=== PATIENT | female | born 1940 | race Caucasian/White ===

== ENCOUNTER 2017-08-24 06:28 | Day surgery (SDC) | payer MEDICARE, BC ==
[~2017-08-24 06:28] MED LIST: Lactated Ringers 1,000 ML IV SCH
[2017-08-24] MEDS ORDERED: Propofol 200 MG/20 ML SDV ONE ×2 (07:59→08:26)
[2017-08-24] MEDS ORDERED: fentaNYL 100 MCG/2 ML SDV ONE (07:59)
--- NOTE | 2017-08-24 17:53 | OR ---
DATE OF SURGERY: 08/24/2017. REFERRING PROVIDER: Iona Cyr MD. PREOPERATIVE DIAGNOSES: History of rectal polyp. Last colonoscopy 03/2012. POSTOPERATIVE DIAGNOSES: 1. A 3 mm rectal polyp at 10 cm removed with hot snare. 2. Moderate diverticulosis, mainly left-sided. 3. Moderate hemorrhoids, mainly external, not acutely inflamed. PROCEDURE: Colonoscopy with polypectomy x1 using hot snare. SURGEON: Anton Bullock M.D. ANESTHESIA: Monitored anesthesia care. BOWEL PREP: GoodChon Toney is a 76-year-old female was brought to the endoscopy suite after discussing risks and benefits of the procedure. Informed consent was obtained for conscious sedation and colonoscopy with or without biopsy and/or polypectomy. We also discussed possibility of missed lesions. Pre-procedure exam was unremarkable. IV, oxygen, and monitors were placed. The patient was placed in the left lateral decubitus position. Sedation was administered and a digital rectal exam was performed and did reveal some moderate external hemorrhoids, not acutely inflamed. Colonoscope was passed into the rectum and slowly advanced all the way to the cecum. Cecum was viewed and photographed. The colonoscope was slowly withdrawn and the mucosa was closed observed in a direct circumferential manner. The ascending colon was unremarkable. The transverse colon was unremarkable. The descending colon was remarkable for moderate diverticulosis. The sigmoid colon was remarkable for moderate diverticulosis. The proximal rectal mucosa did reveal 3 mm polyp at 10 cm removed with hot snare. Retroflexion was performed and rectal mucosa was remarkable for some internal hemorrhoids which were moderate and not acutely inflamed. Scope was removed. The patient tolerated the procedure well. The patient was monitored until that baseline status. Discharge instructions were reviewed and the patient was discharged in good condition. COMPLICATIONS: None. TOTAL TIME: 24 minutes. ESTIMATED BLOOD LOSS: None. RECOMMENDATIONS/FOLLOWUP: We will await results of path report to determine ideal followup interval. I will have the patient hold her aspirin for 3 days to limit any chance of bleeding. I would like to kindly thank Dr. Cyr for this referral. DMB: 08/24/2017 10:11:39 MODL: 08/24/2017 17:45:46 /[id number]
== END 2017-08-24 10:31 | disposition home or self-care (01) ==
LOC: VM.SDS 06:28
PROVIDERS: ATTEND Family Medicine
DX: Z12.11 Encounter for screening for malignant neoplasm of colon (principal); K62.1 Rectal polyp; K57.30 Diverticulosis of large intestine without perforation or abscess without bleeding; K64.4 Residual hemorrhoidal skin tags; K64.8 Other hemorrhoids; E11.22 Type 2 diabetes mellitus with diabetic chronic kidney disease; I12.9 Hypertensive chronic kidney disease with stage 1 through stage 4 chronic kidney disease, or unspecified chronic kidney disease; N18.3 Chronic kidney disease, stage 3 (moderate); E78.00 Pure hypercholesterolemia, unspecified; E83.42 Hypomagnesemia; Z86.010 Personal history of colon polyps; Z88.0 Allergy status to penicillin; Z88.1 Allergy status to other antibiotic agents; Z88.2 Allergy status to sulfonamides; Z88.8 Allergy status to other drugs, medicaments and biological substances; Z79.84 Long term (current) use of oral hypoglycemic drugs; Z79.82 Long term (current) use of aspirin; Z90.49 Acquired absence of other specified parts of digestive tract; Z98.51 Tubal ligation status; Z90.710 Acquired absence of both cervix and uterus
CPT/HCPCS: 00812; 82962; J2704; J3010; J7120

== ENCOUNTER 2022-06-02 08:22 | Day surgery (SDC) | payer MEDICARE, BC ==
[2022-06-02] MEDS ORDERED: Propofol 200 MG/20 ML SDV ONE ×2 (09:43→10:57)
[2022-06-02] MEDS ORDERED: fentaNYL 100 MCG/2 ML SDV ONE (09:43)
== END 2022-06-02 13:55 | disposition home or self-care (01) ==
LOC: VM.SDS 08:22
PROVIDERS: ATTEND Family Medicine
DX: Z12.11 Encounter for screening for malignant neoplasm of colon (principal); K29.50 Unspecified chronic gastritis without bleeding; K29.80 Duodenitis without bleeding; K57.30 Diverticulosis of large intestine without perforation or abscess without bleeding; K64.8 Other hemorrhoids; K25.9 Gastric ulcer, unspecified as acute or chronic, without hemorrhage or perforation; D50.9 Iron deficiency anemia, unspecified; E11.9 Type 2 diabetes mellitus without complications; I10 Essential (primary) hypertension; E78.00 Pure hypercholesterolemia, unspecified; E83.42 Hypomagnesemia; E66.9 Obesity, unspecified; M10.9 Gout, unspecified; Z86.010 Personal history of colon polyps; Z88.0 Allergy status to penicillin; Z88.2 Allergy status to sulfonamides; Z88.8 Allergy status to other drugs, medicaments and biological substances; Z88.1 Allergy status to other antibiotic agents; Z79.899 Other long term (current) drug therapy; Z79.84 Long term (current) use of oral hypoglycemic drugs; Z90.49 Acquired absence of other specified parts of digestive tract; Z98.890 Other specified postprocedural states; Z68.35 Body mass index [BMI] 35.0-35.9, adult
CPT/HCPCS: 00813; 82947; 88305; 88342; J2704; J3010; J7120

== ENCOUNTER 2022-07-13 16:21 | Emergency (ER) | payer MEDICARE, BC ==
[2022-07-13 17:34] LABS: ANION GAP 23.8 mmol/L (5-15); CHLORIDE,CL 114 mmol/L (98-107); ESTIMATED GFR 5 mL/min (>=60); SODIUM,NA 143 mmol/L (136-145)
[2022-07-13] MEDS ORDERED: 50% Dextrose in Water 50 ML Syringe IVPUSH PRN (18:02)
[2022-07-13] MEDS ORDERED: Glucagon,Human Recombinant 1 MG Vial IM PRN (18:02)
[2022-07-13] MEDS ORDERED: 50% Dextrose in Water 50 ML Syringe IV PRN (18:02)
[2022-07-13 18:16] LABS: PCO2 ARTERIAL,POC 17 mmHg (35-48)
[2022-07-13] MEDS: Calcium Gluc in NaCl, ISO-OSM 1,000 MG in Premix Bag 1 BAG IV ONE ×2 (18:20)
[2022-07-13] MEDS: cefTRIAXone 2 GM Vial IVPUSH ONE (18:28)
[2022-07-13] MEDS: Insulin Regular, Human 100 Units/ML 3 ML Vial IVPUSH ONE (18:32)
[2022-07-13] MEDS: Sodium Bicarbonate 8.4% 50 MEQ/50 ML Syringe IVPUSH ONE (18:36)
[2022-07-13] MEDS: Dextrose 10% in Water 500 ML IV SCH (18:36)
[2022-07-13] MEDS: SODIUM CHLORIDE ONE (18:57)
[2022-07-13] MEDS: [UNRECOGNIZED DRUG - OTHER] ONE (18:57)
[2022-07-13] MEDS: CALCIUM GLUCONATE ONE (18:57)
== END 2022-07-13 19:05 | disposition short-term general hospital (02) ==
LOC: VM.ED 16:21
DX: E87.5 Hyperkalemia (principal); I12.9 Hypertensive chronic kidney disease with stage 1 through stage 4 chronic kidney disease, or unspecified chronic kidney disease; E11.22 Type 2 diabetes mellitus with diabetic chronic kidney disease; N18.9 Chronic kidney disease, unspecified; N17.9 Acute kidney failure, unspecified; E78.00 Pure hypercholesterolemia, unspecified; E66.9 Obesity, unspecified; Z68.30 Body mass index [BMI] 30.0-30.9, adult; Z88.0 Allergy status to penicillin; Z88.2 Allergy status to sulfonamides; Z88.1 Allergy status to other antibiotic agents; Z88.8 Allergy status to other drugs, medicaments and biological substances; Z79.82 Long term (current) use of aspirin; Z79.84 Long term (current) use of oral hypoglycemic drugs; Z79.899 Other long term (current) drug therapy
CPT/HCPCS: 36415; 36600; 70450; 80053; 81001; 82803; 82947; 83605; 83735; 84484; 85025; 86140; 87086; 93005; 93010; 96361; 96365; 96375; 99285; 99285-25; J0696; J1815-GY; J3490

== ENCOUNTER 2022-08-11 11:17 | Inpatient (IN) | payer BC, MEDICARE ==
[2022-08-12] MEDS ORDERED: Betamethasone Dipropionate/Clotrimazole 0.05-1% Crm 15 GM Tube TOP PRN (14:19)
[2022-08-12] MEDS ORDERED: Glucagon,Human Recombinant 1 MG Vial IM PRN ×2 (14:19→15:46)
[2022-08-12] MEDS ORDERED: 50% Dextrose in Water 50 ML Syringe IVPUSH PRN ×2 (14:19→15:46)
[2022-08-12] MEDS: Magnesium Chloride 64 MG Tab.ER PO SCH ×2 (16:34→20:40)
[2022-08-12] MEDS: Heparin Sodium 5,000 Units/ML Vial SUBCUT SCH (16:35)
[2022-08-12] MEDS: predniSONE 20 MG Tab PO SCH (16:35)
[2022-08-12] MEDS: Insulin Lispro 100 Units/ML 3 ML Vial SUBCUT SCH ×3 (17:34→20:47)
[2022-08-12] MEDS: Beta-Carotene (Vitamin A) w/Vitamin C & E plus Minerals Tab PO SCH (20:40)
[2022-08-12] MEDS: Citric Acid/Sodium Citrate Solution 30 ML Cup PO SCH (20:43)
[2022-08-12] MEDS: Sodium Chloride 0.9% 10 ML Syringe FLUSH PRN (20:54)
[2022-08-12] MEDS ORDERED: ATOVAQUONE 750 MG/5 ML PO SCH (21:00)
[2022-08-13] MEDS: Allopurinol 100 MG Tab PO SCH (08:27)
[2022-08-13] MEDS: Magnesium Chloride 64 MG Tab.ER PO SCH ×3 (08:27→20:28)
[2022-08-13] MEDS: Furosemide 40 MG Tab PO SCH (08:28)
[2022-08-13] MEDS: Beta-Carotene (Vitamin A) w/Vitamin C & E plus Minerals Tab PO SCH ×2 (08:28→20:30)
[2022-08-13] MEDS: Famotidine 20 MG Tab PO SCH (08:29)
[2022-08-13] MEDS: Cholecalciferol (Vitamin D3) 25 MCG Tab PO SCH (08:31)
[2022-08-13] MEDS: Folic Acid 1 MG Tab PO SCH (08:31)
[2022-08-13] MEDS: Ferrous Sulfate 325 MG Tab PO SCH (08:31)
[2022-08-13] MEDS: Loratadine 10 MG Tab PO SCH (08:31)
[2022-08-13] MEDS: predniSONE 20 MG Tab PO SCH (08:32)
[2022-08-13] MEDS: Heparin Sodium 5,000 Units/ML Vial SUBCUT SCH ×2 (08:32→20:27)
[2022-08-13] MEDS: Citric Acid/Sodium Citrate Solution 30 ML Cup PO SCH ×3 (08:33→20:29)
[2022-08-13] MEDS: Insulin Lispro 100 Units/ML 3 ML Vial SUBCUT SCH ×7 (08:33→20:34)
[2022-08-13] MEDS: Insulin Glarg,Human.Rec.Analog 100 Unit/ML SUBCUT SCH (08:52)
[2022-08-13] MEDS: amLODIPine 10 MG Tab PO SCH (08:52)
[2022-08-13] MEDS ORDERED: glipiZIDE 5 MG Tab PO SCH (09:00)
[2022-08-13 09:19] LABS: ANION GAP 12.8 mmol/L (5-15)
[2022-08-13] MEDS: Sodium Chloride 0.9% 10 ML Syringe FLUSH PRN (20:40)
[2022-08-14] MEDS: Ferrous Sulfate 325 MG Tab PO SCH (08:22)
[2022-08-14] MEDS: Cholecalciferol (Vitamin D3) 25 MCG Tab PO SCH (08:22)
[2022-08-14] MEDS: Beta-Carotene (Vitamin A) w/Vitamin C & E plus Minerals Tab PO SCH ×2 (08:22→20:35)
[2022-08-14] MEDS: Magnesium Chloride 64 MG Tab.ER PO SCH ×3 (08:22→20:35)
[2022-08-14] MEDS: amLODIPine 10 MG Tab PO SCH (08:23)
[2022-08-14] MEDS: Loratadine 10 MG Tab PO SCH (08:24)
[2022-08-14] MEDS: Furosemide 40 MG Tab PO SCH (08:24)
[2022-08-14] MEDS: Folic Acid 1 MG Tab PO SCH (08:24)
[2022-08-14] MEDS: Allopurinol 100 MG Tab PO SCH (08:24)
[2022-08-14] MEDS: predniSONE 20 MG Tab PO SCH (08:25)
[2022-08-14] MEDS: Famotidine 20 MG Tab PO SCH (08:25)
[2022-08-14] MEDS: Citric Acid/Sodium Citrate Solution 30 ML Cup PO SCH ×3 (08:29→20:36)
[2022-08-14] MEDS: Insulin Glarg,Human.Rec.Analog 100 Unit/ML SUBCUT SCH (08:32)
[2022-08-14] MEDS: Insulin Lispro 100 Units/ML 3 ML Vial SUBCUT SCH ×7 (08:33→20:40)
[2022-08-14] MEDS: Heparin Sodium 5,000 Units/ML Vial SUBCUT SCH ×2 (08:35→20:35)
[2022-08-14 10:13] LABS: ANION GAP 14.6 mmol/L (5-15)
[2022-08-14] MEDS: Sodium Chloride 0.9% 10 ML Syringe FLUSH PRN (20:42)
[2022-08-15 07:04] LABS: ANION GAP 14.8 mmol/L (5-15)
[2022-08-15] MEDS: Allopurinol 100 MG Tab PO SCH (08:05)
[2022-08-15] MEDS: Famotidine 20 MG Tab PO SCH (08:05)
[2022-08-15] MEDS: Loratadine 10 MG Tab PO SCH (08:06)
[2022-08-15] MEDS: Beta-Carotene (Vitamin A) w/Vitamin C & E plus Minerals Tab PO SCH ×2 (08:06→20:38)
[2022-08-15] MEDS: Ferrous Sulfate 325 MG Tab PO SCH (08:06)
[2022-08-15] MEDS: predniSONE 20 MG Tab PO SCH (08:07)
[2022-08-15] MEDS: Magnesium Chloride 64 MG Tab.ER PO SCH ×5 (08:08→20:38)
[2022-08-15] MEDS: Cholecalciferol (Vitamin D3) 25 MCG Tab PO SCH (08:08)
[2022-08-15] MEDS: amLODIPine 10 MG Tab PO SCH (08:08)
[2022-08-15] MEDS: Folic Acid 1 MG Tab PO SCH (08:09)
[2022-08-15] MEDS: Furosemide 40 MG Tab PO SCH (08:09)
[2022-08-15] MEDS: Heparin Sodium 5,000 Units/ML Vial SUBCUT SCH ×2 (08:09→20:37)
[2022-08-15] MEDS: Insulin Lispro 100 Units/ML 3 ML Vial SUBCUT SCH ×7 (08:18→20:39)
[2022-08-15] MEDS: Insulin Glarg,Human.Rec.Analog 100 Unit/ML SUBCUT SCH (08:22)
[2022-08-15] MEDS ORDERED: ATOVAQUONE 750 MG/5 ML ONE (08:30)
[2022-08-15] MEDS: Carvedilol 3.125 MG Tab PO SCH ×3 (09:39→17:50)
[2022-08-15] MEDS: Citric Acid/Sodium Citrate Solution 30 ML Cup PO SCH ×3 (09:40→20:41)
[2022-08-16 07:08] LABS: ANION GAP 14.1 mmol/L (5-15)
[2022-08-16] MEDS: Magnesium Chloride 64 MG Tab.ER PO SCH ×4 (09:23→20:57)
[2022-08-16] MEDS: Famotidine 20 MG Tab PO SCH (09:24)
[2022-08-16] MEDS: Allopurinol 100 MG Tab PO SCH (09:24)
[2022-08-16] MEDS: Folic Acid 1 MG Tab PO SCH (09:24)
[2022-08-16] MEDS: Cholecalciferol (Vitamin D3) 25 MCG Tab PO SCH (09:25)
[2022-08-16] MEDS: Furosemide 40 MG Tab PO SCH (09:26)
[2022-08-16] MEDS: Ferrous Sulfate 325 MG Tab PO SCH (09:26)
[2022-08-16] MEDS: Loratadine 10 MG Tab PO SCH (09:26)
[2022-08-16] MEDS: Beta-Carotene (Vitamin A) w/Vitamin C & E plus Minerals Tab PO SCH ×2 (09:27→20:57)
[2022-08-16] MEDS: Heparin Sodium 5,000 Units/ML Vial SUBCUT SCH ×2 (09:27→21:00)
[2022-08-16] MEDS: Insulin Glarg,Human.Rec.Analog 100 Unit/ML SUBCUT SCH (09:28)
[2022-08-16] MEDS: Insulin Lispro 100 Units/ML 3 ML Vial SUBCUT SCH ×7 (09:28→20:59)
[2022-08-16] MEDS: Carvedilol 3.125 MG Tab PO SCH ×2 (09:33→18:05)
[2022-08-16] MEDS: amLODIPine 10 MG Tab PO SCH (09:33)
[2022-08-16] MEDS: Citric Acid/Sodium Citrate Solution 30 ML Cup PO SCH ×3 (09:37→21:02)
[2022-08-16] MEDS: predniSONE 20 MG Tab PO SCH (09:50)
[2022-08-17] MEDS: Magnesium Chloride 64 MG Tab.ER PO SCH ×4 (08:51→20:59)
[2022-08-17] MEDS: predniSONE 20 MG Tab PO SCH (08:51)
[2022-08-17] MEDS: Cholecalciferol (Vitamin D3) 25 MCG Tab PO SCH (08:52)
[2022-08-17] MEDS: Beta-Carotene (Vitamin A) w/Vitamin C & E plus Minerals Tab PO SCH ×2 (08:52→20:59)
[2022-08-17] MEDS: Ferrous Sulfate 325 MG Tab PO SCH (08:52)
[2022-08-17] MEDS: Folic Acid 1 MG Tab PO SCH (08:52)
[2022-08-17] MEDS: Furosemide 40 MG Tab PO SCH (08:53)
[2022-08-17] MEDS: Famotidine 20 MG Tab PO SCH (08:53)
[2022-08-17] MEDS: Allopurinol 100 MG Tab PO SCH (08:53)
[2022-08-17] MEDS: Loratadine 10 MG Tab PO SCH (08:53)
[2022-08-17] MEDS: Citric Acid/Sodium Citrate Solution 30 ML Cup PO SCH ×3 (08:55→20:59)
[2022-08-17] MEDS: Heparin Sodium 5,000 Units/ML Vial SUBCUT SCH ×2 (08:55→20:58)
[2022-08-17] MEDS: Insulin Lispro 100 Units/ML 3 ML Vial SUBCUT SCH ×7 (08:55→21:02)
[2022-08-17] MEDS: Insulin Glarg,Human.Rec.Analog 100 Unit/ML SUBCUT SCH (08:58)
[2022-08-17] MEDS: amLODIPine 10 MG Tab PO SCH (09:02)
[2022-08-17] MEDS: Carvedilol 3.125 MG Tab PO SCH ×2 (09:02→18:08)
[2022-08-18] MEDS: Magnesium Chloride 64 MG Tab.ER PO SCH ×4 (08:01→20:53)
[2022-08-18] MEDS: Cholecalciferol (Vitamin D3) 25 MCG Tab PO SCH (08:01)
[2022-08-18] MEDS: Allopurinol 100 MG Tab PO SCH (08:01)
[2022-08-18] MEDS: Loratadine 10 MG Tab PO SCH (08:02)
[2022-08-18] MEDS: Famotidine 20 MG Tab PO SCH (08:02)
[2022-08-18] MEDS: Ferrous Sulfate 325 MG Tab PO SCH (08:03)
[2022-08-18] MEDS: predniSONE 20 MG Tab PO SCH (08:03)
[2022-08-18] MEDS: Carvedilol 3.125 MG Tab PO SCH ×2 (08:04→17:47)
[2022-08-18] MEDS: Furosemide 40 MG Tab PO SCH (08:04)
[2022-08-18] MEDS: Folic Acid 1 MG Tab PO SCH (08:04)
[2022-08-18] MEDS: Beta-Carotene (Vitamin A) w/Vitamin C & E plus Minerals Tab PO SCH ×2 (08:04→20:54)
[2022-08-18] MEDS: amLODIPine 10 MG Tab PO SCH (08:05)
[2022-08-18] MEDS: Citric Acid/Sodium Citrate Solution 30 ML Cup PO SCH ×3 (08:05→20:55)
[2022-08-18] MEDS: Insulin Lispro 100 Units/ML 3 ML Vial SUBCUT SCH ×4 (08:06→17:42)
[2022-08-18] MEDS: Insulin Glarg,Human.Rec.Analog 100 Unit/ML SUBCUT SCH (08:06)
[2022-08-18] MEDS: Heparin Sodium 5,000 Units/ML Vial SUBCUT SCH ×2 (08:07→20:57)
[2022-08-19 07:23] LABS: ANION GAP 12.2 mmol/L (5-15)
[2022-08-19] MEDS: Folic Acid 1 MG Tab PO SCH (08:18)
[2022-08-19] MEDS: Loratadine 10 MG Tab PO SCH (08:18)
[2022-08-19] MEDS: Allopurinol 100 MG Tab PO SCH (08:18)
[2022-08-19] MEDS: predniSONE 20 MG Tab PO SCH (08:18)
[2022-08-19] MEDS: Magnesium Chloride 64 MG Tab.ER PO SCH ×4 (08:18→21:20)
[2022-08-19] MEDS: Cholecalciferol (Vitamin D3) 25 MCG Tab PO SCH (08:18)
[2022-08-19] MEDS: Ferrous Sulfate 325 MG Tab PO SCH (08:18)
[2022-08-19] MEDS: Beta-Carotene (Vitamin A) w/Vitamin C & E plus Minerals Tab PO SCH ×2 (08:18→21:21)
[2022-08-19] MEDS: Famotidine 20 MG Tab PO SCH (08:19)
[2022-08-19] MEDS: Heparin Sodium 5,000 Units/ML Vial SUBCUT SCH (08:19)
[2022-08-19] MEDS: Furosemide 40 MG Tab PO SCH (08:19)
[2022-08-19] MEDS: Citric Acid/Sodium Citrate Solution 30 ML Cup PO SCH ×3 (08:20→21:22)
[2022-08-19] MEDS: amLODIPine 10 MG Tab PO SCH (08:21)
[2022-08-19] MEDS: Carvedilol 3.125 MG Tab PO SCH ×2 (08:22→17:38)
[2022-08-19] MEDS ORDERED: 50% Dextrose in Water 50 ML Syringe IVPUSH PRN (08:25)
[2022-08-19] MEDS ORDERED: Insulin Lispro 100 Units/ML 3 ML Vial SUBCUT PRN ×2 (08:25→08:28)
[2022-08-19] MEDS ORDERED: Glucagon,Human Recombinant 1 MG Vial IM PRN (08:25)
[2022-08-19] MEDS: Insulin Glarg,Human.Rec.Analog 100 Unit/ML SUBCUT SCH (08:27)
[2022-08-19] MEDS: Insulin Lispro 100 Units/ML 3 ML Vial SUBCUT SCH ×3 (08:28→17:37)
[2022-08-20] MEDS: Insulin Glarg,Human.Rec.Analog 100 Unit/ML SUBCUT SCH (08:50)
[2022-08-20] MEDS: Insulin Lispro 100 Units/ML 3 ML Vial SUBCUT SCH ×3 (08:51→18:04)
[2022-08-20] MEDS: Citric Acid/Sodium Citrate Solution 30 ML Cup PO SCH ×3 (09:00→20:57)
[2022-08-20] MEDS: Beta-Carotene (Vitamin A) w/Vitamin C & E plus Minerals Tab PO SCH ×2 (09:08→20:56)
[2022-08-20] MEDS: Famotidine 20 MG Tab PO SCH (09:08)
[2022-08-20] MEDS: Magnesium Chloride 64 MG Tab.ER PO SCH ×4 (09:08→20:55)
[2022-08-20] MEDS: Cholecalciferol (Vitamin D3) 25 MCG Tab PO SCH (09:08)
[2022-08-20] MEDS: Loratadine 10 MG Tab PO SCH (09:08)
[2022-08-20] MEDS: Ferrous Sulfate 325 MG Tab PO SCH (09:08)
[2022-08-20] MEDS: Allopurinol 100 MG Tab (OWN SUPPLY) PO SCH (09:09)
[2022-08-20] MEDS: Folic Acid 1 MG Tab (OWN SUPPLY) PO SCH (13:11)
[2022-08-20] MEDS: CARVEDILOL 3.125 MG PO SCH ×2 (13:11→18:09)
[2022-08-20] MEDS: PREDNISONE 20 MG PO SCH (13:12)
[2022-08-20] MEDS: Furosemide 40 MG Tab (OWN SUPPLY) PO SCH (13:12)
[2022-08-20] MEDS: amLODIPine 5 MG Tab (OWN SUPPLY) PO SCH (13:13)
[2022-08-21] MEDS: Insulin Glarg,Human.Rec.Analog 100 Unit/ML SUBCUT SCH (08:32)
[2022-08-21] MEDS: Insulin Lispro 100 Units/ML 3 ML Vial SUBCUT SCH ×3 (08:33→18:02)
[2022-08-21] MEDS: Famotidine 20 MG Tab PO SCH (08:34)
[2022-08-21] MEDS: Magnesium Chloride 64 MG Tab.ER PO SCH ×4 (08:34→21:35)
[2022-08-21] MEDS: Cholecalciferol (Vitamin D3) 25 MCG Tab PO SCH (08:34)
[2022-08-21] MEDS: Beta-Carotene (Vitamin A) w/Vitamin C & E plus Minerals Tab PO SCH ×2 (08:34→21:35)
[2022-08-21] MEDS: Loratadine 10 MG Tab PO SCH (08:34)
[2022-08-21] MEDS: Ferrous Sulfate 325 MG Tab PO SCH (08:34)
[2022-08-21] MEDS: Citric Acid/Sodium Citrate Solution 30 ML Cup PO SCH ×3 (08:37→21:35)
[2022-08-21] MEDS: CARVEDILOL 3.125 MG PO SCH ×2 (08:39→18:10)
[2022-08-21] MEDS: Folic Acid 1 MG Tab (OWN SUPPLY) PO SCH (08:40)
[2022-08-21] MEDS: Allopurinol 100 MG Tab (OWN SUPPLY) PO SCH (08:40)
[2022-08-21] MEDS: PREDNISONE 20 MG PO SCH (08:40)
[2022-08-21] MEDS: Furosemide 40 MG Tab (OWN SUPPLY) PO SCH (08:41)
[2022-08-21] MEDS: amLODIPine 5 MG Tab (OWN SUPPLY) PO SCH (08:41)
[2022-08-22 07:46] LABS: ANION GAP 14.1 mmol/L (5-15)
[2022-08-22] MEDS: Citric Acid/Sodium Citrate Solution 30 ML Cup PO SCH (08:03)
[2022-08-22] MEDS: Insulin Glarg,Human.Rec.Analog 100 Unit/ML SUBCUT SCH (08:04)
[2022-08-22] MEDS: Beta-Carotene (Vitamin A) w/Vitamin C & E plus Minerals Tab PO SCH (08:05)
[2022-08-22] MEDS: Magnesium Chloride 64 MG Tab.ER PO SCH ×2 (08:05→12:32)
[2022-08-22] MEDS: Loratadine 10 MG Tab PO SCH (08:05)
[2022-08-22] MEDS: Insulin Lispro 100 Units/ML 3 ML Vial SUBCUT SCH ×2 (08:05→14:10)
[2022-08-22] MEDS: Famotidine 20 MG Tab PO SCH (08:05)
[2022-08-22] MEDS: Ferrous Sulfate 325 MG Tab PO SCH (08:06)
[2022-08-22] MEDS: Cholecalciferol (Vitamin D3) 25 MCG Tab PO SCH (08:06)
[2022-08-22] MEDS: CARVEDILOL 3.125 MG PO SCH (08:09)
[2022-08-22] MEDS: amLODIPine 5 MG Tab (OWN SUPPLY) PO SCH (08:09)
[2022-08-22] MEDS: PREDNISONE 20 MG PO SCH (08:10)
[2022-08-22] MEDS: Folic Acid 1 MG Tab (OWN SUPPLY) PO SCH (08:10)
[2022-08-22] MEDS: Furosemide 40 MG Tab (OWN SUPPLY) PO SCH (08:10)
[2022-08-22] MEDS: Allopurinol 100 MG Tab (OWN SUPPLY) PO SCH (08:15)
[2022-08-22] MEDS ORDERED: Citric Acid/Sodium Citrate Solution 30 ML Cup PO SCH (13:00)
[2022-08-23] MEDS ORDERED: PREDNISONE 20 MG PO SCH (09:00)
[2022-08-26] MEDS ORDERED: PREDNISONE 20 MG PO SCH (09:00)
[2022-08-29] MEDS ORDERED: AFLIBERCEPT 2 MG/0.05 ML SCH (08:00)
[2022-08-29] MEDS ORDERED: PREDNISONE 20 MG PO SCH (09:00)
[2022-09-01] MEDS ORDERED: PREDNISONE 20 MG PO SCH (09:00)
[2022-09-04] MEDS ORDERED: PREDNISONE 20 MG PO SCH (09:00)
[2022-09-07] MEDS ORDERED: PREDNISONE 20 MG PO SCH (09:00)
[2022-09-10] MEDS ORDERED: PREDNISONE 20 MG PO SCH (09:00)
[2022-09-17] MEDS ORDERED: PREDNISONE 20 MG PO SCH (09:00)
== END 2022-08-22 12:00 | disposition home or self-care (01) | DRG 684 ==
LOC: VM.MS 08-12 13:41
PROVIDERS: ADMIT Family Medicine; ATTEND Family Medicine
DX: N17.0 Acute kidney failure with tubular necrosis (principal); E83.42 Hypomagnesemia; H35.30 Unspecified macular degeneration; N18.4 Chronic kidney disease, stage 4 (severe); E11.22 Type 2 diabetes mellitus with diabetic chronic kidney disease; I12.9 Hypertensive chronic kidney disease with stage 1 through stage 4 chronic kidney disease, or unspecified chronic kidney disease; M10.9 Gout, unspecified; E78.00 Pure hypercholesterolemia, unspecified; D63.1 Anemia in chronic kidney disease; E66.9 Obesity, unspecified; J30.9 Allergic rhinitis, unspecified; E55.9 Vitamin D deficiency, unspecified; Z90.49 Acquired absence of other specified parts of digestive tract; Z88.8 Allergy status to other drugs, medicaments and biological substances; Z88.2 Allergy status to sulfonamides; Z88.1 Allergy status to other antibiotic agents; Z88.0 Allergy status to penicillin; Z91.041 Radiographic dye allergy status; Z98.890 Other specified postprocedural states; Z79.899 Other long term (current) drug therapy; Z90.710 Acquired absence of both cervix and uterus; Z79.890 Hormone replacement therapy; Z82.49 Family history of ischemic heart disease and other diseases of the circulatory system; Z83.3 Family history of diabetes mellitus; Z68.30 Body mass index [BMI] 30.0-30.9, adult
CPT/HCPCS: 36415; 80048; 80076; 82550; 82947; 83735; 84100; 85025; 85027; 95851-GO; 97110-GP; 97112-GP; 97116-GP; 97162-GP; 97165-GO; 97530-GO; 97535-GO; A9270-GY; J1644; J1815-GY; J3490; J7512